=== PATIENT | female | born 1990 | race Caucasian/White ===

== ENCOUNTER 2016-12-17 09:35 | Emergency (ER) | payer OTHER ==
[~2016-12-17] VITALS: Wt 70.0 kg
[2016-12-17] MEDS ORDERED: AMOX1TAB10 PO (10:21)
[2016-12-17] MEDS ORDERED: IBUP-1542 PO (10:27)
--- NOTE | 2016-12-17 11:11 | ERD ---
ER Documentation Chief Complaint Date/Time DATE: 12/17/16 TIME: 11:08 Chief Complaint SINUS CONGESTION AND COUGH FOR THE PAST FEW DAYS. HPI 36-year-old female with no significant past medical history presents to the ED complaining of sinus congestion and sinus pain that radiates to her left side of the ear. States that this occurred 3 days ago and she has tried taking NyQuil without relief of her symptoms. Denies any fever, chills, cough, chest pain, shortness of breath, wheezing, abdominal pain. States that she smokes 1 pack of cigarettes every 3 days. ROS All systems reviewed and are negative except as per history of present illness. Medications Home Meds Active Scripts Ibuprofen* (Motrin*) 600 Mg Tab, 600 MG PO Q6, #30 TAB Prov:SAGRARIO ALEXIS PA-C 12/17/16 Amoxicillin/Potassium Clav (Amox-Clav 875-125 mg Tablet) 875-125 mg Tab, 1 TAB PO BID for 7 Days, #14 TAB Prov:SAGRARIO ALEXIS PA-C 12/17/16 Allergies Allergies: Coded Allergies: No Known Drug Allergies (Verified Allergy, Unknown, 06/07/14) No Known Drug Allergy (Verified Allergy, Unknown, NO, 01/23/11) PMhx/Soc History of Surgery: Yes (C/S) Anesthesia Reaction: No Hx Neurological Disorder: No Hx Respiratory Disorders: No Hx Cardiac Disorders: No Hx Psychiatric Problems: No Hx Miscellaneous Medical Probl: No Hx Alcohol Use: No Hx Substance Use: No Hx Tobacco Use: No Physical Exam Vitals Vital Signs Date Time Temp Pulse Resp B/P Pulse Ox O2 Delivery O2 Flow Rate FiO2 12/17/16 09:46 98.5 81 21 119/71 98 Physical Exam Const: [id number], well-nourished. In no acute distress. Head: Atraumatic, normocephalic. Tenderness to palpation of the bilateral maxillary and frontal sinuses. No erythema, warmth to touch, fluctuance, induration noted. Eyes: Normal Conjunctiva without injection. No purulent discharge. PERRL. EOMI ENT: Normal external ear. Ear canal without erythema. Tympanic membrane pearly sharma without effusion or bulging. Nasal canal clear with normal turbinates. Moist oropharynx without tonsillar exudates. Non-erythematous pharynx. Uvula midline. No drooling. No trismus. Neck: Full range of motion. No meningismus. No cervical lymphadenopathy. Resp: Clear to auscultation bilaterally. No wheezing, rhonchi, rales, or crackles. No accessory muscle use. No retractions. Cardio: Regular rate and rhythm. No murmurs, rubs or gallops. Abd: Soft, non tender, non distended. Normal bowel sounds. No palpable masses. No rebound tenderness. No guarding. Skin: No petechiae or rashes Back: No midline tenderness. No CVA tenderness. Ext: No cyanosis, or edema. Neur: Awake and alert. Psych: Normal Mood and Affect Procedures/MDM This is a 26-year-old female with no significant past medical history presents to the ED complaining of bilateral sinus pain, sinus congestion. Patient is afebrile nontoxic appearing. Patient has normal vital signs. Patient's exam is consistent with sinusitis. Patient is appropriate for outpatient antibiotics. Patient's physical exam include lungs which were clear to auscultation and a normal pulse oximetry. Bilateral ears pearly peralta. No tenderness to palpation of tragus or mastoid. Low suspicion for mastoiditis, otitis externa, otitis media. Patient is speaking in full sentences. There is a low suspicion for pneumonia, epiglottitis, croup, sinusitis, peritonsillar abscess, hands foot mouth disease, retropharyngeal abscess, meningitis, sepsis, acute abdomen or other emergent conditions. Discharge medications: Ibuprofen, Augmentin Follow up with primary care physician in 1-2 days. Instructed patient to return to the ED sooner for any worsening symptoms. Patient's questions were answered. Patient understood and agreed with discharge plan. Patient discharged stable. Departure Diagnosis: Primary Impression: Sinusitis Sinusitis location: unspecified location Chronicity: unspecified Qualified Code: J32.9 - Sinusitis, unspecified chronicity, unspecified location Condition: Stable Patient Instructions: Sinusitis, Abx Tx Referrals: COMM[facility]ITY CLIN[facility] YOU HAVE RECEIVED A MEDICAL SCREENING EXAM AND THE RESULTS INDICATE THAT YOU DO NOT HAVE A CONDITION THAT REQUIRES URGENT TREATMENT IN THE EMERGENCY DEPARTMENT. FURTHER EVALUATION AND TREATMENT OF YOUR CONDITION CAN WAIT UNTIL YOU ARE SEEN IN YOUR DOCTORS OFFICE WITHIN THE NEXT 1-2 DAYS. IT IS YOUR RESPONSIBILITY TO MAKE AN APPOINTMENT FOR FOLOW-UP CARE. IF YOU HAVE A PRIMARY DOCTOR --you should call your primary doctor and schedule an appointment IF YOU DO NOT HAVE A PRIMARY DOCTOR YOU CAN CALL OUR PHYSICIAN REFERRAL HOTLINE AT IF YOU CAN NOT AFFORD TO SEE A PHYSICIAN YOU CAN CHOSE FROM THE FOLLOWING [facility] [address] [facility] [address] [facility] [address] [facility] [address] [facility] [address] [facility]. [facility] [address] [facility]. [facility] YOU HAVE RECEIVED A MEDICAL SCREENING EXAM AND THE RESULTS INDICATE THAT YOU DO NOT HAVE A CONDITION THAT REQUIRES URGENT TREATMENT IN THE EMERGENCY DEPARTMENT. FURTHER EVALUATION AND TREATMENT OF YOUR CONDITION CAN WAIT UNTIL YOU ARE SEEN IN YOUR DOCTORS OFFICE WITHIN THE NEXT 1-2 DAYS. IT IS YOUR RESPONSIBILITY TO MAKE AN APPOINTMENT FOR FOLOW-UP CARE. IF YOU HAVE A PRIMARY DOCTOR --you should call your primary doctor and schedule and appointment IF YOU DO NOT HAVE A PRIMARY DOCTOR YOU CAN CALL OUR PHYSICIAN REFERRAL HOTLINE AT . IF YOU CAN NOT AFFORD TO SEE A PHYSICIAN YOU CAN CHOSE FROM THE FOLLOWING [facility]: [facility] [address] [place] [address] [facility] [address] [place] [address] [facility] [address] [place] [address] [facility] Additional Instructions: FOLLOW UP WITH YOUR PRIMARY CARE PHYSICIAN TOMORROW. Return to this facility if you are not improving as expected. SAGRARIO ALEXIS PA-C Dec 17, 2016 11:11
== END 2016-12-17 10:30 | disposition home or self-care (01) ==
LOC: FTE 09:35
DX: J32.9 Chronic sinusitis, unspecified (principal)
CPT/HCPCS: 99283

== ENCOUNTER 2017-12-04 10:33 | Emergency (ER) | END 2017-12-04 12:54 | disposition home or self-care (01) ==

== ENCOUNTER 2018-01-10 19:14 | Inpatient (IN) | END 2018-01-18 18:48 | disposition home or self-care (01) | DRG 32 ==

== ENCOUNTER 2018-01-26 14:19 | Emergency (ER) | END 2018-01-26 21:13 | disposition home or self-care (01) ==

== ENCOUNTER 2018-05-09 19:51 | Emergency (ER) | END 2018-05-09 22:24 | disposition home or self-care (01) ==

== ENCOUNTER 2018-05-20 13:02 | Emergency (ER) | END 2018-05-20 13:32 | disposition left against medical advice (07) ==